=== PATIENT | female | born 1955 | race Caucasian/White ===

== ENCOUNTER → 2016-12-29 | Outpatient (CLI) | payer MEDICARE, OTHER ==
[2016-12-29 14:26] LABS: Blood Urea Nitrogen 14 mg/dL (7-17); Non-African American GFR(MDRD) >60 (>60 ml/min/1.73 sqM)
--- NOTE | 2016-12-29 15:35 | MR ---
EXAMINATION TYPE: MR brain wo/w con DATE OF EXAM: 12/29/2016 3:26 PM COMPARISON: NONE HISTORY: Dizziness CONTRAST: Patient received 20 mL intravenous MultiHance gadolinium contrast. Multiplanar and multispin-echo imaging of the brain was performed . Pre and post contrast enhanced i mages are obtained. The ventricles, basal cisterns and sulci overlying the cerebral convexities are mildly mildly enlarge d. Globular foci of increased signal are seen within the deep and periventricular white matter suspiciou s for demyelinating disease. Additional possibilities include remote deep white matter insults as wel l as sequela of chronic migraine headaches and Lyme's disease to name a few. Focus of decreased signal intensity right frontal lobe may reflect a small area of remote hemosiderin deposition within a small vascular malformation. No acute edema is seen on diffusion weighted imaging. There is no evidence for midline shift or mass effect. Acute intracranial hemorrhage or extra-axial collection is not evident. No enhancing lesions are seen. The paranasal sinuses and mastoid air cells are well-aerated. IMPRESSION: 1. Correlate for demyelinating disease. 2. Small focus of hemosiderin within the right frontal lobe may reflect a small area of remote hemorr tameka and/or hemorrhage within a small vascular malformation.
== END | disposition home or self-care (01) ==
LOC: RADMRIMAIN 13:55
PROVIDERS: ATTEND Psychiatry & Neurology Neurology
DX: C71.9 Malignant neoplasm of brain, unspecified (principal); G45.9 Transient cerebral ischemic attack, unspecified; R42 Dizziness and giddiness
CPT/HCPCS: 82565; 84520; 70553; 36415; A9577

== ENCOUNTER → 2017-01-03 | Outpatient (CLI) | payer MEDICARE, OTHER ==
[2017-01-03 16:09] LABS: Basophils # (A) 0.1 k/uL (0-0.2); Basophils % (A) 1 %; CHCM 31.1; Eosinophils # (A) 0.3 k/uL (0-0.7); Eosinophils % (A) 3 %; HCT 39.6 % (34.0-46.0); HDW 2.32; HGB 12.6 gm/dL (11.4-16.0); Hypochromasia Slight; Luc # (Auto) 0.32; Luc % (Auto) 4; Lymphocytes # (A) 2.9 k/uL (1.0-4.8); Lymphocytes % (A) 34 %; MCH 30.8 pg (25.0-35.0); MCHC 31.8 g/dL (31.0-37.0); Mean Platelet Volume 7.9; Monocytes # (A) 0.6 k/uL (0-1.0); Monocytes % (A) 6 %; Neutrophils # (A) 4.5 k/uL (1.3-7.7); Neutrophils % (A) 52 %; RBC 4.08 m/uL (3.80-5.40); RDW 13.4 % (11.5-15.5); WBC 8.5 k/uL (3.8-10.6); WBC (Perox) 8.95
[2017-01-03 16:13] LABS: ALT 38 U/L (9-52); AST 23 U/L (14-36)
[2017-01-03 16:16] LABS: Rheumatoid Factor, Qnt <9 IU/mL (<12)
[2017-01-03 19:56] LABS: ANA w/Reflex to Titer NEGATIVE (NEGATIVE)
== END ==
LOC: LABWHC1 15:34
PROVIDERS: ATTEND Psychiatry & Neurology Neurology
DX: I63.9 Cerebral infarction, unspecified (principal)
CPT/HCPCS: 36415; 84450; 84460; 85025; 86038; 86225; 86431; 86618

== ENCOUNTER → 2017-01-21 | Outpatient (CLI) | payer MEDICARE, OTHER ==
[2017-01-21 13:34] LABS: Anion Gap 7 mmol/L; Blood Urea Nitrogen 10 mg/dL (7-17); Calcium 9.3 mg/dL (8.4-10.2); Carbon Dioxide 33 mmol/L (22-30); Chloride 104 mmol/L (98-107); Cholesterol 165 mg/dL (<200); Creatine Kinase 32 U/L (30-135); Glucose 102 mg/dL (74-99); HDL Cholesterol 46 mg/dL (40-60); Non-African American GFR(MDRD) >60 (>60 ml/min/1.73 sqM); Potassium 4.3 mmol/L (3.5-5.1); Sodium 144 mmol/L (137-145); Triglycerides 316 mg/dL (<150)
== END | disposition home or self-care (01) ==
LOC: LABWHC1 12:51
PROVIDERS: ATTEND Internal Medicine Clinical Cardiac Electrophysiology
DX: E78.5 Hyperlipidemia, unspecified (principal); R07.9 Chest pain, unspecified
CPT/HCPCS: 36415; 80048; 80061; 82550; 84484

== ENCOUNTER 2017-02-11 10:53 | Day surgery (SDC) | payer MEDICARE, OTHER ==
[2017-02-07 16:08] VITALS: BMI 36.6
[~2017-02-11 10:53] MED LIST: DEXAMETHASONE SOD PHOSPHATE 10 MG/ML 1 ML VIAL IV ONE; MIDAZOLAM 2 MG/2 ML VIAL IV PRN; ONDANSETRON 4 MG/2 ML VIAL IVP ONE; Pre Op ABX Message 1 EACH MISC MISCELLANE ONE; SCOPOLAMINE 1.5MG/72HR PATCH TRANSDERM ONE
[2017-02-11] MEDS: LACTATED RINGERS 1,000 ML IV SCH ×2 (11:22→23:40)
[2017-02-11] MEDS ORDERED: LIDOCAINE 1% 20 ML VIAL (10MG/ML) FOR IV START INTRADERMA ONE (11:22)
[2017-02-11 11:26] LABS: Glucose,Whole Blood 96 mg/dL (75-99)
[2017-02-11] MEDS ORDERED: SUCCINYLCHOLINE CHLORIDE 100 MG/5 ML SYR IV ONE (12:17)
[2017-02-11] MEDS ORDERED: fentaNYL (PF) 50 MCG/ML 2 ML AMP ONE (12:17)
[2017-02-11] MEDS ORDERED: GLYCOPYRROLATE 0.2 MG/ML 2 ML VIAL ONE (12:17)
[2017-02-11] MEDS ORDERED: PHENYLEPHRINE-0.9% NACL SYG 1 MG/10 ML SYRINGE ONE (12:17)
[2017-02-11] MEDS ORDERED: LIDOCAINE 1% INJ 10MG/ML (20 ML MDV) ONE (12:17)
[2017-02-11] MEDS ORDERED: NEOSTIGMINE 1 MG/ML 10 ML VIAL ONE (12:17)
[2017-02-11] MEDS ORDERED: MIDAZOLAM 2 MG/2 ML VIAL ONE (12:17)
[2017-02-11] MEDS ORDERED: PROPOFOL 10 MG/ML 20 ML VIAL IV ONE ×2 (12:17)
[2017-02-11] MEDS ORDERED: ROCURONIUM BROMIDE 10 MG/ML 10 ML VIAL IV ONE (12:17)
[2017-02-11] MEDS ORDERED: SODIUM CHLORIDE 0.9% 50 ML with ceFAZolin 2,000 MG IV ONE ×2 (12:43)
[2017-02-11] MEDS ORDERED: ceFAZolin 1,000 MG in SODIUM CHLORIDE 0.9% 1,000 ML IRRIGATION ONE (13:18)
[2017-02-11] MEDS ORDERED: ONDANSETRON 4 MG/2 ML VIAL IVP PRN (13:48)
[2017-02-11] MEDS ORDERED: HYDROmorphone 1 MG/ML 1 ML SYRINGE IVP PRN ×2 (13:48)
[2017-02-11] MEDS ORDERED: SENNOSIDES-DOCUSATE SODIUM 1 EACH TAB PO PRN (13:48)
[2017-02-11] MEDS ORDERED: TEMAZEPAM 15 MG CAP PO PRN (13:48)
[2017-02-11] MEDS ORDERED: HYDROcodone/APAP 10-325MG 1 EACH TAB PO PRN (13:54)
[2017-02-11] MEDS ORDERED: HYDROmorphone 1 MG/ML 1 ML SYRINGE IVP ONE (14:10)
[2017-02-11] MEDS ORDERED: KETOROLAC 30 MG/ML 1 ML VIAL IVP ONE (14:15)
[2017-02-11] MEDS: HYDROmorphone 1 MG/ML 1 ML SYRINGE IVP PRN ×2 (14:17→14:25)
[2017-02-11 14:30] LABS: Glucose,Whole Blood 119 mg/dL (75-99)
[2017-02-11] MEDS ORDERED: LACTATED RINGERS 1,000 ML IV ONE (14:51)
[2017-02-11] MEDS ORDERED: FLUTICASONE 50MCG/SPRAY NASAL 16GM EA NOSTRIL PRN (15:39)
[2017-02-11] MEDS ORDERED: ALBUTEROL NEBULIZED 2.5 MG/3 ML INHALATION PRN (15:39)
--- NOTE | 2017-02-11 16:12 | P.CONS ---
History of Present Illness - Reason for Consult Consult date: 02/11/17 Medical management - History of Present Illness This is a pleasant 61-year-old Sandie patient of Dr. Aranda within Dr. GROSS, admitted to the hospital secondary to right shoulder acromioplasty with excision of distal clavicle and rotator cuff repair manipulation left shoulder on 02/11/2017, he has underlying history of diabetes mellitus type 2, fibromyalgia, hypertension, thyroid disorder, previous TIA 15 years ago with right hand residual weakness, IBS and polymyositis. Patient had an uneventful surgery without any complications, vital signs are stable, patient followed with hypertensive otherwise no chest pain no shortness of breath. he is currently requires 8 L there is cannula satting between 92-96% a right after recovery Review of Systems Constitutional: Reports as per HPI, Denies anorexia, Denies chills, Denies chronic headaches, Denies chronic pain, Denies daytime sleepiness, Denies fatigue, Denies fever, Denies lethargy, Denies malaise, Denies night sweats, Denies poor appetite, Denies sweats, Denies weakness, Denies weight gain, Denies weight loss Ears, nose, mouth and throat: Reports as per HPI, Denies ant. neck pain, Denies bleeding gums, Denies dental pain, Denies dysphagia, Denies epistaxis, Denies headache, Denies hoarseness, Denies mouth pain, Denies nasal congestion, Denies nasal discharge, Denies neck fullness/pressure, Denies neck lump, Denies nose pain, Denies odynophagia, Denies post-nasal drip, Denies sinus pain, Denies sinus pressure, Denies swelling in mouth, Denies swelling in throat, Denies sore throat, Denies vertigo, Denies voice changes Cardiovascular: Reports as per HPI, Denies chest pain, Denies claudication, Denies decreased exercise tolerance, Denies dyspnea on exertion, Denies edema, Denies high blood pressure, Denies irregular heart beat, Denies leg edema, Denies lightheadedness, Denies orthopnea, Denies palpitations, Denies paroxysmal nocturnal dyspnea, Denies phlebitis, Denies rapid heart beat, Denies shortness of breath, Denies syncope Respiratory: Reports as per HPI, Denies congestion, Denies cough, Denies cough with sputum, Denies dyspnea, Denies excessive sputum, Denies hemoptysis, Denies home oxygen, Denies pain, Denies pain on inspiration, Denies pleurisy, Denies respiratory infections, Denies sleep apnea, Denies snoring, Denies wheezing Gastrointestinal: Reports as per HPI, Denies abdominal pain, Denies belching, Denies bloating, Denies BRBPR, Denies change in bowel habits, Denies coffee ground emesis, Denies constipation, Denies diarrhea, Denies dyspepsia, Denies early satiety, Denies excessive gas, Denies heartburn, Denies hematemesis, Denies hematochezia, Denies indigestion, Denies jaundice, Denies lactose intolerance, Denies loss of appetite, Denies melena, Denies nausea, Denies vomiting Genitourinary: Reports as per HPI, Denies abnormal vaginal bleeding, Denies decreased libido, Denies difficulty conceiving, Denies difficulty voiding, Denies dysmenorrhea, Denies dyspareunia, Denies dysuria, Denies flank pain, Denies genital sores, Denies hematuria, Denies hot flashes, Denies incomplete emptying, Denies kidney stones, Denies menorrhagia, Denies mixed incontinence, Denies nocturia, Denies pelvic pain, Denies post void dribbling, Denies , Denies prolapse symptoms, Denies stress incontinence, Denies urge incontinence , Denies urgency, Denies urinary frequency, Denies vaginal discharge, Denies vaginal dryness, Denies vaginal itching, Denies vaginal odor Menstruation: Reports as per HPI, Denies amenorrhea, Denies amenorrhea on BC, Denies currently menstrual, Denies cycle < 21 days, Denies cycle > 35 days, Denies cycle variable, Denies menses 1-7 days, Denies menses 8 or > days, Denies menses variable, Denies period heavy, Denies period light, Denies period normal, Denies period spotting, Denies post hysterectomy, Denies postmenopausal , Denies premenarcheal Musculoskeletal: Reports as per HPI, Denies arm numbness/tingling, Denies atrophy, Denies fractures, Denies frequent falls, Denies gait dysfunction, Denies hot joints, Denies leg numbness/tingling, Denies limitation of motion, Denies loss of height, Denies low back pain, Denies morning stiffness, Denies muscle cramps, Denies muscle weakness, Denies myalgias, Denies neck pain, Denies neck stiffness, Denies prior amputations, Denies redness of joints, Denies shooting arm pain, Denies shooting leg pain Musculoskeletal: left: shoulder pain, shoulder stiffness Integumentary: Reports as per HPI, Denies acne, Denies boils, Denies brittle nails, Denies change in hair/nails, Denies color changes, Denies darkening of skin, Denies depigmentation, Denies dryness, Denies foot/leg ulcers, Denies growths, Denies hirsutism, Denies lesions, Denies onychomycosis, Denies pruritus , Denies rash, Denies sores, Denies striae, Denies unusual bruising, Denies wounds Neurological: Reports as per HPI, Denies aphasia, Denies ataxia, Denies balance difficulties, Denies burning pain, Denies change in mentation, Denies change in smell/taste, Denies change in speech, Denies confusion, Denies convulsions, Denies double vision, Denies gait dysfunction, Denies head injury, Denies headaches, Denies hearing difficulties, Denies lack of coordination, Denies loss of vision, Denies memory loss, Denies migraines, Denies motor disturbance, Denies numbness, Denies paralysis, Denies paresthesias, Denies seizures, Denies sensory deficit, Denies spasticity, Denies syncope, Denies tic, Denies tingling , Denies transient paralysis, Denies tremors, Denies vertigo, Denies weakness, Denies visual changes Psychiatric: Reports as per HPI, Denies anhedonia, Denies anxiety, Denies anxiety attacks, Denies change in appetite, Denies change in libido, Denies change in sleep habits, Denies confusion, Denies depression, Denies difficulty concentrating, Denies disorientation, Denies hallucinations, Denies hopelessness , Denies hypersomnia, Denies insomnia, Denies irritability, Denies memory loss, Denies mood swings, Denies paranoia, Denies sadness/tearfulness, Denies sleep disturbances, Denies suicidal ideation Endocrine: Reports as per HPI, Denies cold intolerance, Denies deepening of the voice, Denies excessive sweating, Denies excessive thirst, Denies fatigue, Denies flushing, Denies heat intolerance, Denies high blood sugars, Denies increase in ring/shoe/hat size, Denies low blood sugars, Denies nocturia, Denies palpitations, Denies polydipsia, Denies polyphagia, Denies polyuria, Denies proptosis, Denies recent glucocorticoid use, Denies thyroid mass, Denies weight change Hematologic/Lymphatic: Reports as per HPI, Denies easy bleeding, Denies easy bruising, Denies lymphadenopathy, Denies lymphedema, Denies thrombophilia Allergic/Immunologic: Reports as per HPI, Denies allergic rhinitis, Denies anaphylaxis, Denies angioedema, Denies gluten intolerance, Denies persistent infections, Denies seasonal allergies, Denies urticaria, Denies wheezing Past Medical History Past Medical History: Diabetes Mellitus, Fibromyalgia, GERD/Reflux, Hyperlipidemia, Hypertension, Osteoarthritis (OA), Thyroid Disorder Additional Past Medical History / Comment(s): hx migraines, TIA 15 yrs ago-some rt hand weakness, palpitations, IBS, diarrhea, polymiositis, urinary leakage, History of Any Multi-Drug Resistant Organisms: None Reported Past Surgical History: Appendectomy, Breast Surgery, Section, Cholecystectomy Additional Past Surgical History / Comment(s): rt breast biopsy x 2, cyst removed from rt ovary, Past Anesthesia/Blood Transfusion Reactions: Postoperative Nausea & Vomiting ( PONV) Past Psychological History: Anxiety, Depression Smoking Status: Current every day smoker Past Alcohol Use History: None Reported Additional Past Alcohol Use History / Comment(s): smokes 1 PPD for 47 yrs Past Drug Use History: None Reported - Past Family History Mother Family Medical History: No Reported History Medications and Allergies Home Medications Medication Instructions Recorded Confirmed Type ALPRAZolam [Xanax] 1 mg PO BID 02/07/17 02/11/17 History Albuterol Inhaler [Ventolin Hfa 2 puff INHALATION Q4-6H PRN 02/07/17 02/11/17 History Inhaler] Aspirin 325 mg PO DAILY 02/07/17 02/07/17 History Benazepril HCl [Lotensin] 40 mg PO DAILY 02/07/17 02/11/17 History DULoxetine HCL [Cymbalta] 60 mg PO HS 02/07/17 02/11/17 History Ergocalciferol (Vitamin D2) 50,000 unit PO CROWDER 02/07/17 02/11/17 History [Vitamin D2] Fluticasone Nasal [place] [Flonase 2 spr EA NOSTRIL BID PRN 02/07/17 02/11/17 History Nasal [place]] Furosemide [Lasix] 20 mg PO DAILY 02/07/17 02/11/17 History Hydrocodone/Acetaminophen [[place] 1 tab PO Q6H PRN 02/07/17 02/11/17 History 10-325] Lidocaine 5% Oint [Xylocaine 5% 1 applic TOPICAL TID 02/07/17 02/11/17 History Oint] Mirabegron [Myrbetriq] 25 mg PO HS 02/07/17 02/11/17 History Multivitamins, Thera [Multivitamin 1 tab PO DAILY 02/07/17 02/07/17 History (formulary)] Omeprazole [PriLOSEC] 40 mg PO QAM 02/07/17 02/11/17 History Potassium Chloride [Klor-Con 20] 20 meq PO DAILY 02/07/17 02/11/17 History Pravastatin Sodium [Pravachol] 40 mg PO HS 02/07/17 02/11/17 History Pregabalin [Lyrica] 100 mg PO 1700 02/07/17 02/11/17 History Pregabalin [Lyrica] 100 mg PO HS 02/07/17 02/11/17 History Pregabalin [Lyrica] 200 mg PO QAM 02/07/17 02/11/17 History metFORMIN HCL 1,000 mg PO BID 02/07/17 02/11/17 History rOPINIRole HCL [Requip] 1 mg PO TID 02/07/17 02/11/17 History tiZANidine [Zanaflex] 2 mg PO Q8HR PRN 02/07/17 02/11/17 History Allergies Allergy/AdvReac Type Severity Reaction Status Date / Time adhesive tape Allergy rash,itchin Verified 02/07/17 15:53 g Physical Exam Vitals: Vital Signs Temp Pulse Resp BP Pulse Ox 02/11/17 15:00 93 16 158/76 92 L 02/11/17 14:45 71 16 161/75 92 L 02/11/17 14:30 77 16 159/74 92 L 02/11/17 14:15 87 16 163/79 96 02/11/17 14:00 97.9 F 99 16 180/84 95 02/11/17 11:29 98.1 F 85 16 160/81 92 L 02/11/17 11:21 98.1 F 85 16 160/81 92 L 02/11/17 11:12 98.1 F 85 16 160/81 92 L 02/11/17 11:11 98.1 F 85 16 160/81 92 L Intake and Output 02/11/17 02/11/17 02/11/17 06:59 14:59 22:59 Intake Total 1551 Output Total 25 Balance 1526 Intake: IV 1551 Output: Estimated Blood Loss 25 Other: # Voids 1 - Constitutional General appearance: cooperative, no acute distress, obese - EENT Eyes: anicteric sclerae, EOMI, PERRLA, dentition normal, normal appearance ENT: hearing grossly normal, NA/AT, normal oropharynx - Neck Neck: no lymphadenopathy, normal ROM, no other, no rigidity, no stridor, no thyromegaly - Respiratory Respiratory: bilateral: CTA, negative: diminished, dullness, rales, rhonchi - Cardiovascular Rhythm: regular Heart sounds: normal: S1, S2 Abnormal Heart Sounds: no systolic murmur, no diastolic murmur, no rub, no S3 Gallop, no S4 Gallop, no click, no other - Gastrointestinal General gastrointestinal: normal bowel sounds, soft - Integumentary Integumentary: normal, normal turgor - Neurologic Neurologic: CNII-XII intact - Musculoskeletal Musculoskeletal: gait normal, strength equal bilaterally - Psychiatric Psychiatric: A&O x's 3, appropriate affect, intact judgment & insight Results Labs: Abnormal Lab Results - Last 24 Hours (Table) 02/11/17 Range/Units 14:28 POC Glucose (mg/dL) 119 H (75-99) mg/dL Assessment and Plan Plan: 1. Status post left shoulder acromioplasty and distal clavicle excision and rotator cuff manipulation performed my 20 03/08/2017, patient's receiving incentives prematurely, opioids for pain control, aspirin 1025 mg daily for DVT prophylaxis next 2. Diabetes mellitus type 2, on metformin, 3. Hyperlipidemia on pravastatin 4. Previous CVA with residual right upper extremity weakness, 5. Neuropathy with restless leg on Cymbalta, Lyrica, hydrocodone, and Requip no medication changes were made 6. Vitamin D deficiency on 50,000 units every Tuesday 7. Hypertensive cardiovascular disease on Lotensin 40 mg daily, aspirin maintenance at [address] Mccullough in allowing us to precipitate the care of your patient, we' re going to follow him with you during this current hospital stay, patient currently stable recommendations to his treatment would be made depending on his clinical progress
[2017-02-11] MEDS ORDERED: PREGABALIN 100 MG CAP PO SCH ×2 (17:00→21:00)
[2017-02-11 17:36] LABS: Glucose,Whole Blood 147 mg/dL (75-99)
[2017-02-11] MEDS: INSULIN LISPRO (humaLOG) 300 UNIT/3 ML VIAL SQ SCH ×2 (17:55→21:18)
[2017-02-11] MEDS: HYDROcodone/APAP 10-325MG 1 EACH TAB PO PRN ×2 (18:26→23:21)
[2017-02-11 20:21] LABS: Glucose,Whole Blood 175 mg/dL (75-99)
[2017-02-11] MEDS: ALPRAZolam 0.5 MG TAB PO SCH (20:25)
[2017-02-11] MEDS: metFORMIN 500 MG TAB PO SCH (20:26)
[2017-02-11] MEDS: ceFAZolin 2 GM in SODIUM CHLORIDE 0.9% 100 ML IVPB SCH (20:27)
[2017-02-11] MEDS ORDERED: PRAVASTATIN SODIUM 40 MG TAB PO SCH (21:00)
[2017-02-11] MEDS ORDERED: NON-FORMULARY DRUG (Mirabegron [Myrbetriq] 25 MG) PO SCH (21:00)
[2017-02-11] MEDS ORDERED: DULoxetine HCL 60 MG CAPSULE.DR PO SCH (21:00)
[2017-02-11] MEDS: hydrOXYzine PAMOATE 25 MG CAP PO PRN (23:22)
[2017-02-12 00:52] VITALS: RESP 16
[2017-02-12] MEDS: HYDROcodone/APAP 10-325MG 1 EACH TAB PO PRN ×2 (05:24→12:16)
[2017-02-12] MEDS: ceFAZolin 2 GM in SODIUM CHLORIDE 0.9% 100 ML IVPB SCH (05:24)
[2017-02-12] MEDS: hydrOXYzine PAMOATE 25 MG CAP PO PRN ×2 (05:25→12:17)
[2017-02-12] MEDS: LACTATED RINGERS 1,000 ML IV SCH ×3 (05:30→10:00)
[2017-02-12 06:59] LABS: Glucose,Whole Blood 96 mg/dL (75-99)
[2017-02-12 07:24] LABS: Basophils % (A) 0 %; CH 30.4; CHCM 32.2; Eosinophils % (A) 0 %; HCT 35.4 % (34.0-46.0); HDW 2.66; HGB 11.5 gm/dL (11.4-16.0); Luc % (Auto) 2; Lymphocytes # (A) 1.5 k/uL (1.0-4.8); Lymphocytes % (A) 14 %; MCH 30.9 pg (25.0-35.0); MCHC 32.5 g/dL (31.0-37.0); Monocytes # (A) 0.7 k/uL (0-1.0); Monocytes % (A) 6 %; Neutrophils # (A) 8.6 k/uL (1.3-7.7); Neutrophils % (A) 78 %; RBC 3.73 m/uL (3.80-5.40); RDW 13.1 % (11.5-15.5); WBC (Perox) 11.25
[2017-02-12] MEDS ORDERED: PANTOPRAZOLE 40 MG TABLET PO SCH (07:30)
[2017-02-12 07:45] LABS: Anion Gap 7 mmol/L; Blood Urea Nitrogen 13 mg/dL (7-17); Calcium 9.2 mg/dL (8.4-10.2); Carbon Dioxide 29 mmol/L (22-30); Chloride 105 mmol/L (98-107); Glucose 90 mg/dL (74-99); Non-African American GFR(MDRD) >60 (>60 ml/min/1.73 sqM); Potassium 4.4 mmol/L (3.5-5.1); Sodium 141 mmol/L (137-145)
[2017-02-12] MEDS ORDERED: POTASSIUM CHLORIDE ER 20 MEQ TAB.ER PO SCH (09:00)
[2017-02-12] MEDS ORDERED: FUROSEMIDE 20 MG TAB PO SCH (09:00)
[2017-02-12] MEDS ORDERED: PREGABALIN 100 MG CAP PO SCH (09:00)
[2017-02-12] MEDS ORDERED: LISINOPRIL 20 MG TAB PO SCH (09:00)
[2017-02-12] MEDS ORDERED: ASPIRIN 325 MG TAB PO SCH (09:00)
[2017-02-12] MEDS: HYDROmorphone 1 MG/ML 1 ML SYRINGE IVP PRN ×2 (09:49→13:58)
[2017-02-12] MEDS: INSULIN LISPRO (humaLOG) 300 UNIT/3 ML VIAL SQ SCH ×2 (10:03→12:58)
[2017-02-12] MEDS: metFORMIN 500 MG TAB PO SCH (10:09)
[2017-02-12] MEDS: ALPRAZolam 0.5 MG TAB PO SCH (10:10)
--- NOTE | 2017-02-12 10:53 | P.DS ---
Providers Date of admission: 02/11/2017 Expected date of discharge: 02/12/17 Attending physician: Jayy Mccullough Consults: 02/11/17 13:48 Consult Physician Routine Consulting Provider: Denia Galvan Consult Reason/Comments: medical management Do you want consulting provider notified?: Yes Primary care physician: Curt Childress - Discharge Diagnosis(es) (1) Status post shoulder surgery Current Visit: Yes Status: Acute (2) Left shoulder pain Current Visit: Yes Status: Acute Hospital Course: This is a pleasant 61-year-old female who presented with rotator cuff adhesive capsulitis of the left shoulder who failed outpatient conservative therapy. She admitted for surgical intervention with Dr. Jayy Mccullough. The patient tolerated the procedure well and did well postoperatively. Her pain was being controlled with oral medication yesterday with Dora 10 mg/325 mg. She states she has had some more discomfort this morning and was given a dose of IV Dilaudid for pain control. She states she would like to discharged home today. We discussed at the bedside her pain must be controlled with oral medications prior to discharge. We'll discuss we'll plan to see how she improves over the day and if she is able to return to having her pain controlled with Dora 10 mg/ 325 mg she'll be cleared for discharge home today, 02/12/2017. Condition on day of discharge stable. Patient will be discharged home. Patient was cleared preoperatively for surgery by . Patient currently denies any nausea , vomiting, fever, or chills. Patient is eating and voiding freely without difficulty. Patient will continue to keep dressing over the left shoulder clean , dry, and intact. Her dressing may be changed daily as needed. She may remove thr dressing and shower in 3 days if she is not experiencing any drainage from incision site. We discussed she should continue to keep her arm sling/abductor pillow intact at all times except while bathing. She is given discharge prescriptions for Dora 10 mg/325 mg, Keflex, and Senokot. She'll plan to follow up with Dr. Mccullough in 2 weeks at [facility] for follow-up evaluation. Physical Exam on day of discharge: Patient is awake, alert, and oriented 3 Vital signs stable Good chest excursion with deep inspiration and expiration Abdomen soft nontender Dressing over the left shoulder is clean, dry, and intact No significant drainage at the incision site Some pain with palpation over the left shoulder Sling and abductor pillow remain intact Full active range of motion of all fingers and thumb on the left hand without significant difficulty Neurovascularly intact left upper extremity Procedures: Left rotator cuff surgery for rotator cuff adhesive capsulitis Patient Condition at Discharge: Stable Plan - Discharge Summary New Discharge Prescriptions: Cephalexin [Keflex] 500 mg PO Q8HR #15 cap HYDROcodone/APAP 10-325MG [Dora 10-325] 1 - 2 tab PO Q4-6H PRN #90 tab PRN Reason: Pain Sennosides-Docusate Sodium [Senokot-S] 2 tab PO DAILY #30 tablet Discharge Medication List ALPRAZolam [Xanax] 1 mg PO BID 02/07/17 [History] Albuterol Inhaler [Ventolin Hfa Inhaler] 2 puff INHALATION Q4-6H PRN 02/07/17 [ History] Aspirin 325 mg PO DAILY 02/07/17 [History] Benazepril HCl [Lotensin] 40 mg PO DAILY 02/07/17 [History] DULoxetine HCL [Cymbalta] 60 mg PO HS 02/07/17 [History] Ergocalciferol (Vitamin D2) [Vitamin D2] 50,000 unit PO CROWDER 02/07/17 [History] Fluticasone Nasal [place] [Flonase Nasal [place]] 2 spr EA NOSTRIL BID PRN 02/07/17 [History] Furosemide [Lasix] 20 mg PO DAILY 02/07/17 [History] Hydrocodone/Acetaminophen [Dora 10-325] 1 tab PO Q6H PRN 02/07/17 [History] Lidocaine 5% Oint [Xylocaine 5% Oint] 1 applic TOPICAL TID 02/07/17 [History] Mirabegron [Myrbetriq] 25 mg PO HS 02/07/17 [History] Multivitamins, Thera [Multivitamin (formulary)] 1 tab PO DAILY 02/07/17 [History ] Omeprazole [PriLOSEC] 40 mg PO QAM 02/07/17 [History] Potassium Chloride [Klor-Con 20] 20 meq PO DAILY 02/07/17 [History] Pravastatin Sodium [Pravachol] 40 mg PO HS 02/07/17 [History] Pregabalin [Lyrica] 100 mg PO 1700 02/07/17 [History] Pregabalin [Lyrica] 100 mg PO HS 02/07/17 [History] Pregabalin [Lyrica] 200 mg PO QAM 02/07/17 [History] metFORMIN HCL 1,000 mg PO BID 02/07/17 [History] rOPINIRole HCL [Requip] 1 mg PO TID 02/07/17 [History] tiZANidine [Zanaflex] 2 mg PO Q8HR PRN 02/07/17 [History] Cephalexin [Keflex] 500 mg PO Q8HR #15 cap 02/11/17 [Rx] HYDROcodone/APAP 10-325MG [Dora 10-325] 1 - 2 tab PO Q4-6H PRN #90 tab [Rx] Sennosides-Docusate Sodium [Senokot-S] 2 tab PO DAILY #30 tablet 02/11/17 [Rx] Follow up Appointment(s)/Referral(s): Jayy Mccullough DO [Doctor of Osteopathic Medicine] - 2 Weeks Activity/Diet/Wound Care/Special Instructions: Keep incision clean and dry Change dressing daily May shower in 3 days if no drainage from incision Keep arm sling/abductor pillow in place except when bathing Follow up with Dr. Mccullough in 2 weeks. Call [facility] with any questions or concerns. [phone] Discharge Disposition: HOME SELF-CARE
[2017-02-12 11:33] LABS: Glucose,Whole Blood 100 mg/dL (75-99)
[2017-02-12 14:08] LABS: Hemoglobin A1C 5.4 % (4.2-6.1)
--- NOTE | 2017-02-12 15:05 | P.PN ---
Subjective This is a pleasant 61-year-old Sandie patient of Dr. Childress and Dr. 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 Patient had an uneventful surgery without any complications, vital signs are stable, patient followed with hypertensive otherwise no chest pain no shortness of breath. he is currently requires 8 L there is cannula satting between 92-96% a right after recovery. Today 02/12/2017 patient is doing very well pain is well-controlled patient is an bleeding slightly with slight help still have a sling on her shoulder incision looks fine patient will be discharged home today. Objective - Vital Signs Vital signs: Vital Signs Temp 98.3 F 02/12/17 10:00 Pulse 89 02/12/17 10:00 Resp 16 02/12/17 10:00 BP 123/75 02/12/17 10:00 Pulse Ox 95 02/12/17 10:00 Intake & Output 02/11/17 02/12/17 02/12/17 18:59 06:59 18:59 Intake Total 1551 1550 Output Total 25 Balance 1526 1550 Weight 99.79 kg Intake: IV 1551 Intake, IV Titration 1250 Amount Lactated Ringers 1,000 ml 1050 @ 100 mls/hr IV .Q10H LIV Rx#:[id number] ceFAZolin 2 gm In Sodium 200 Chloride 0.9% 100 ml @ 100 mls/hr IVPB Q8H LIV Rx#:[id number] Oral 300 Output: Estimated Blood Loss 25 Other: Voiding Method Toilet # Voids 2 2 - Constitutional General appearance: Present: cooperative, no acute distress. Absent: average body habitus, disheveled, mild distress, morbidly obese, obese, severe distress , thin - EENT Eyes: Present: normal appearance. Absent: abnormal pupil, anicteric sclerae, disc margins sharp, edentulous, EOMI, PERRLA, fundus normal, photophobia, dentition normal, poor dentition, ptosis, scleral icterus ENT: Present: hard of hearing. Absent: hearing grossly normal, NA/AT, normal oropharynx, other, pharyngeal erythema, thrush, tonsillar exudates, tonsillar swelling Ears: bilateral: normal, bulging - Neck Neck: Present: normal ROM Carotids: bilateral: upstroke normal Thyroid: bilateral: normal size - Respiratory Respiratory: bilateral: CTA, diminished - Cardiovascular Rhythm: regular Heart sounds: normal: S1, S2 Abnormal Heart Sounds: Present: systolic murmur, S3 Gallop - Gastrointestinal General gastrointestinal: Present: decreased bowel sounds, soft. Absent: absent bowel sounds, distended, hepatomegaly, hyperactive bowel sounds, normal bowel sounds, organomegaly, rigid, scaphoid, splenomegaly, tenderness, umbilical hernia, ventral hernia - Integumentary Integumentary Comment(s): Shoulders and sling still have mild discomfort mild swelling on the left side no sign of bleeding or abnormality. Patient's sensation to fingers looks good no sign of changing color no compartment syndrome. Integumentary: Present: pale. Absent: calor, cellulitis, cyanotic, decreased turgor, flushed, jaundiced, normal, normal turgor, rash, ulcer - Neurologic Neurologic: Present: CNII-XII intact - Musculoskeletal Musculoskeletal: Present: gait normal, generalized weakness - Psychiatric Psychiatric: Present: A&O x's 3. Absent: appropriate affect, intact judgment & insight - Labs CBC & Chem 7: 02/12/17 06:31 02/12/17 06:31 Labs: Abnormal Lab Results - Last 24 Hours (Table) 02/11/17 02/11/17 02/12/17 Range/Units 17:15 20:19 06:31 WBC 11.0 H (3.8-10.6) k/uL RBC 3.73 L (3.80-5.40) m/uL Neutrophils # 8.6 H (1.3-7.7) k/uL POC Glucose (mg/dL) 147 H 175 H (75-99) mg/dL 02/12/17 Range/Units 11:31 WBC (3.8-10.6) k/uL RBC (3.80-5.40) m/uL Neutrophils # (1.3-7.7) k/uL POC Glucose (mg/dL) 100 H (75-99) mg/dL Assessment and Plan Plan: 1. Status post left shoulder acromioplasty and distal clavicle excision and rotator cuff surgery, has done very well so far was clear by orthopedic to go home on a sling with pain management for now. 2. Diabetes mellitus type 2, on metformin, 3. Hyperlipidemia on pravastatin 4. Previous CVA with residual right upper extremity weakness, 5. Neuropathy with restless leg on Cymbalta, Lyrica, hydrocodone, and Requip no medication changes were made 6. Vitamin D deficiency on 50,000 units every Tuesday 7. Hypertensive cardiovascular disease on Lotensin 40 mg daily, aspirin maintenance at 325 mg daily. 8. Pain management: FRANK [place] and patient was switched to hydrocodone orally if still tolerating medication well and be discharged in the afternoon. Discharge planning: Patient be discharged home today with home care and family help.
[2017-02-12 15:46] VITALS: BP 135/85; PULSE 81; TEMP 98.4
[2017-02-13] MEDS ORDERED: ERGOCALCIFEROL 50,000 UNIT CAP PO SCH (09:00)
--- NOTE | 2017-02-18 07:41 | OP ---
DATE OF SERVICE: 02/11/2017 SURGEON: VERONA PONCE DO [address] PRODUCTION: Rubi Reilly NP PREOPERATIVE DIAGNOSIS: Impingement left shoulder with rotator cuff tear. POSTOPERATIVE DIAGNOSIS: Impingement left shoulder with rotator cuff tear. OPERATION: Manipulation left shoulder under anesthesia with resection distal left clavicle, decompression acromioplasty, microtear rotator cuff repair. ANESTHESIA: ESTIMATED BLOOD LOSS: SPECIMENS REMOVED: COMPLICATIONS: OPERATIVE FINDINGS: DESCRIPTION OF PROCEDURE: Patient is taken to the operative suite and placed in supine position. General inhalation anesthesia was performed by the Department of Anesthesiology. Patient placed in beach chair position having padded and appropriately secured. A Betadine prep was carried out over the lateral shoulder. Sterile drapes were applied in the usual manner. Manipulation of glenohumeral done breaking up of the adhesions in the glenohumeral area. Minimally invasive anterolateral incision was developed over the acromion. Sharp dissection in the subcutaneous tissue was performed. Superior acromioclavicular ligament was released. Distal 1cm right clavicle was excised with a bone saw. Anterior lateral deltoid was released. The acromion and coracoacromial ligament was released. The anterolateral decompression acromioplasty was then performed. Acromial undersurface shaped with bone saw and the bone rasp. The rotator cuff was infected and lateral ligaments include of the rotator cuff enhancement. The repair was initiated and Ethibond suture in running fashion. The area was irrigated copiously with antibiotic solution. The deltoid was reapproximated anteriorly with underlying Ethibond suture. The deep fascia was approximated with 2-0 Vicryl suture in running fashion. Subcutaneous tissue was approximated with 2-0 Vicryl suture interrupted fashion. Skin was approximated with 3-0 Quill suture in subcuticular fashion. Incision was secured with Dermabond. Sterile dressing was applied. Patient placed in abductor pillow splint and transferred to recovery room in satisfactory postop condition. GROSS PATHOLOGY: Left rotator cuff impingement with tear of the rotator cuff tendon. [facility]ITALNakita
== END 2017-02-12 16:50 | disposition home or self-care (01) ==
LOC: OR 10:53 → 3SUR 14:26 → OR 02-12 16:50
PROVIDERS: ATTEND Orthopaedic Surgery
DX: M75.02 Adhesive capsulitis of left shoulder (principal); M75.102 Unspecified rotator cuff tear or rupture of left shoulder, not specified as traumatic; M75.42 Impingement syndrome of left shoulder; M19.012 Primary osteoarthritis, left shoulder; I10 Essential (primary) hypertension; E78.5 Hyperlipidemia, unspecified; E11.9 Type 2 diabetes mellitus without complications; Z79.4 Long term (current) use of insulin; Z79.84 Long term (current) use of oral hypoglycemic drugs; I48.91 Unspecified atrial fibrillation; I69.851 Hemiplegia and hemiparesis following other cerebrovascular disease affecting right dominant side; K21.9 Gastro-esophageal reflux disease without esophagitis; F32.9 Major depressive disorder, single episode, unspecified; Z79.82 Long term (current) use of aspirin; Z79.899 Other long term (current) drug therapy; Z91.09 Other allergy status, other than to drugs and biological substances
CPT/HCPCS: 80048; 83036; 85025; 23415; 23120; J2250; J1100; J2710; J0690 ×4; J2405; J2001; J3010; J1885; J1170 ×2; J2370; J0330; J2704

== ENCOUNTER → 2017-12-22 | Outpatient (CLI) | payer MEDICARE, OTHER ==
[2017-12-22 13:27] LABS: Partial Thromboplastin Time 22.8 sec (22.0-30.0); Prothrombin Time 9.6 sec (9.0-12.0)
[2017-12-22 13:28] LABS: HGB 12.6 gm/dL (11.4-16.0); Hypochromasia Slight; MCH 30.1 pg (25.0-35.0); MCHC 31.5 g/dL (31.0-37.0); MCV 95.3 fL (80.0-100.0); Mean Platelet Volume 8.5; Platelet Count 217 k/uL (150-450); RBC 4.19 m/uL (3.80-5.40); RDW 14.1 % (11.5-15.5); WBC 7.7 k/uL (3.8-10.6)
[2017-12-22 13:34] LABS: Albumin 3.9 g/dL (3.5-5.0); Calcium 9.6 mg/dL (8.4-10.2); Potassium 4.7 mmol/L (3.5-5.1); Total Bilirubin 0.4 mg/dL (0.2-1.3); Total Protein 6.4 g/dL (6.3-8.2)
[2017-12-22 15:14] LABS: Appearance,Urine Clear (Clear); Bilirubin,Urine Negative (Negative); Blood,Urine Negative (Negative); Color,Urine Light Yellow; Glucose,Urine (UA) Negative (Negative); Ketones,Urine Negative (Negative); Leukocyte Esterase,Urine Negative (Negative); Nitrite,Urine Negative (Negative); Protein,Urine Negative (Negative); Specific Gravity,Urine 1.007 (1.001-1.035); Urobilinogen,Urine <2.0 mg/dL (<2.0)
== END | disposition home or self-care (01) ==
LOC: LABWHC1 12:02
PROVIDERS: ATTEND Orthopaedic Surgery
DX: Z01.812 Encounter for preprocedural laboratory examination (principal); Z79.01 Long term (current) use of anticoagulants
CPT/HCPCS: 36415; 80053; 81003; 85027; 85610; 85730; 87070

== ENCOUNTER → 2018-01-03 | Day surgery (SDC) | payer MEDICARE, OTHER ==
[2017-12-29 12:34] VITALS: BMI 36.2
[~2018-01-03] MED LIST changes: +LACTATED RINGERS 1,000 ML IV SCH; +LIDOCAINE 1% 20 ML VIAL (10MG/ML) FOR IV START INTRADERMA ONE; -Pre Op ABX Message 1 EACH MISC MISCELLANE ONE; +VANCOMYCIN 1,500 MG in SODIUM CHLORIDE 0.9% 250 ML IVPB ONE; +fentaNYL (PF) 50 MCG/ML 2 ML AMP IV PRN
[2018-01-03 06:36] LABS: Glucose,Whole Blood 96 mg/dL (75-99)
[2018-01-03 06:37] VITALS: BP 133/66; PULSE 89; RESP 20; TEMP 97.8
[2018-01-03 08:50] LABS: Glucose,Whole Blood 89 mg/dL (75-99)
--- NOTE | 2018-01-03 10:11 | CONS ---
CONSULTATION DATE OF SERVICE: 01/03/2018 I examined Ms. Uriarte in the preoperative area around 8:30 a.m. Surgical total knee replacement was scheduled at 9:00. On examination, she developed and being difficult to wake up. The patient was not alert and 60 drop in her blood sugar. According to her , she had fallen approximately a week ago and bumped her head possible ongoing cerebral at this time. up in the bed and I . She was a little bit more alert. She complained about headache and in view of her rapid onset and no apparent discernible direct cause we will cancel the total knee replacement which is an elective procedure at this time. We will have her cleared by her family physician and consults . I explained all of this information with her and nurses. . Will make arrangements for cancelation at this time [id number] / IJN: [id number] /
== END ==
LOC: OR 05:53 → 2ORMAIN 05:53 → UNDOADMIN 05:53 → EDSTATUS 08:00 → UNDODISIN 09:26
PROVIDERS: ATTEND Orthopaedic Surgery
DX: M17.11 Unilateral primary osteoarthritis, right knee (principal); M23.303 Other meniscus derangements, unspecified medial meniscus, right knee; M21.161 Varus deformity, not elsewhere classified, right knee; Z53.8 Procedure and treatment not carried out for other reasons
CPT/HCPCS: J3370; J1100; J2405